=== PATIENT | female | born 1990 | race Caucasian/White ===

== ENCOUNTER 2022-12-01 23:26 | Emergency (ER) | payer BC, OTHER ==
[2022-12-01] MEDS ORDERED: diphenhydrAMINE 25 MG Cap PO ONE (23:47)
[2022-12-01] MEDS ORDERED: Ondansetron 4 MG Tab.DIS PO ONE (23:48)
[2022-12-01] MEDS ORDERED: predniSONE 20 MG Tab PO ONE (23:48)
[2022-12-01] MEDS ORDERED: Famotidine 20 MG Tab PO ONE (23:49)
[2022-12-02] MEDS ORDERED: Sodium Chloride 0.9% 10 ML Syringe FLUSH PRN
[2022-12-02] MEDS ORDERED: EPINEPHrine 1 MG/ML SDV SUBCUT ONE
[2022-12-02] MEDS ORDERED: diphenhydrAMINE 50 MG/ML SDV IVPUSH ONE (00:01)
[2022-12-02] MEDS ORDERED: methylPREDNISolone Sodium Succinate 125 MG/2 ML SDV IVPUSH ONE (00:01)
[2022-12-02] MEDS ORDERED: Famotidine 20 MG/2 ML SDV IVPUSH ONE (00:01)
[2022-12-02] MEDS ORDERED: Sodium Chloride 0.9% 1,000 ML IV ONE (00:02)
[2022-12-02 00:22] LABS: BASOPHILS ABSOLUTE AUTO 0.03 K/uL (0.00-0.10); BASOPHILS PERCENT AUTO 0.5 % (0.1-1.3); EOSINOPHILS ABSOLUTE AUTO 0.17 K/uL (0.00-0.40); EOSINOPHILS PERCENT AUTO 2.8 % (0.0-5.4); HEMATOCRIT 39.8 % (34.3-46.0); HEMOGLOBIN 13.5 g/dL (11.2-15.5); IMMATURE GRAN ABSOLUTE AUTO 0.02 K/uL (0.00-0.23); IMMATURE GRAN PERCENT AUTO 0.3 % (0.0-0.7); LYMPHOCYTES PERCENT AUTO 56.2 % (11.4-47.7); MEAN CORPUSCULAR HEMOGLOBIN 31.9 pg (31.6-35.5); MEAN CORPUSCULAR HGB CONC 33.9 g/dL (31.6-35.5); MEAN CORPUSCULAR VOLUME 94.1 fL (81.4-99.0); MONOCYTES ABSOLUTE AUTO 0.49 K/uL (0.20-0.90); MONOCYTES PERCENT AUTO 8.1 % (3.3-12.6); NEUTROPHILS ABSOLUTE AUTO 1.94 K/uL (1.0-7.6); NEUTROPHILS PERCENT AUTO 32.1 % (40.0-78.1); PLATELET COUNT,PLT 204 K/uL (130-375); RED BLOOD CELL COUNT 4.23 M/uL (3.77-5.24); WHITE BLOOD CELL COUNT,WBC 6.1 K/uL (3.2-11.0)
[2022-12-02 00:33] LABS: ANION GAP 16.4 mmol/L (5.0-14.0); CALCIUM 7.6 mg/dL (8.5-10.1); CREATININE 0.8 mg/dL (0.6-1.0); EST CRCL DRUG DOSING (CG) 98.18 mL/min; POTASSIUM,K 3.4 mmol/L (3.6-5.2)
[2022-12-02] MEDS ORDERED: EPINEPHrine 1 MG/ML SDV IM ONE (00:34)
== END 2022-12-02 04:35 | disposition home or self-care (01) ==
LOC: JP.ED 23:26
DX: T78.2XXA Anaphylactic shock, unspecified, initial encounter (principal); L50.9 Urticaria, unspecified; Z79.899 Other long term (current) drug therapy
CPT/HCPCS: 36415; 80048; 82947; 84703; 85025; 96361; 96372; 96374; 96375; 99284; J0171; J1200; J2930; J3490; J7030